=== PATIENT | male | born 1985 | race Hispanic/Latino ===

== ENCOUNTER 2016-12-08 21:25 | Emergency (ER) | payer OTHER ==
[2016-12-08 21:35] VITALS: BP 119/73; PULSE 93; RESP 16; TEMP 98.4; O2SAT 98
[2016-12-08] MEDS ORDERED: Lidocaine 1% Inj (20ml) ONE (22:07)
[2016-12-08] MEDS ORDERED: TDAP Vaccine 0.5 mL Syr IM ONE (22:12)
[2016-12-08] MEDS ORDERED: Povidone Iodine Topical 10% Sol ONE (22:32)
[2016-12-08] MEDS ORDERED: Lidocaine 1% Inj (20ml) IJ ONE (22:34)
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
== END 2016-12-08 23:15 | disposition home or self-care (01) ==
LOC: H.ER 21:25
DX: S01.81XA Laceration without foreign body of other part of head, initial encounter (principal); S09.90XA Unspecified injury of head, initial encounter; W22.8XXA Striking against or struck by other objects, initial encounter; Y92.310 Basketball court as the place of occurrence of the external cause